=== PATIENT | male | born 1995 | race Caucasian/White ===

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

== ENCOUNTER 2017-01-16 12:30 | Emergency (ER) | payer OTHER ==
[2017-01-16 12:49] VITALS: RESP 16
[2017-01-16 12:58] LABS: % IMMATURE GRANULYOCYTES 0.5 % (0.0-1.1); ABSOLUTE IMMATURE GRANULOCYTES 0.07 10^3/uL (0.00-0.10); ADD DIFF? NO; ADD MORPH? NO; ADD SCAN? NO; ATYPICAL LYMPHOCYTE FLAG 0 (0-99); FRAGMENT RBC FLAG 0 (0-99); HEMATOCRIT 45.4 % (40.0-51.0); HEMOGLOBIN 15.2 g/dL (13.7-17.5); LEFT SHIFT FLG 0 (0-99); LIPEMIA HEMOLYSIS FLAG 80 (0-99); MEAN CELL HEMOGLOBIN 28.8 pg (27.9-34.1); MEAN CELL HEMOGLOBIN CONCENTR. 33.5 g/dL (32.4-36.7); MEAN PLATELET VOLUME 10.6 fL (8.7-11.7); PLATELET CLUMPS FLAG 30 (0-99); PLATELET COUNT 264 10^3/uL (150-400); RED BLOOD CELL COUNT 5.28 10^6/uL (4.40-6.38); RED CELL DISTRIBUTION WIDTH 12.7 % (11.5-15.2)
[2017-01-16 13:16] LABS: ALANINE AMINOTRANSFERASE 27 IU/L (21-72); ALBUMIN 4.9 g/dL (3.5-5.0); ALKALINE PHOSPHATASE 77 IU/L (38-126); ANION GAP 19 mEq/L (8-16); ASPARTATE AMINOTRANSFERASE 32 IU/L (17-59); BILIRUBIN,TOTAL 0.8 mg/dL (0.1-1.4); CALCIUM 9.7 mg/dL (8.5-10.4); CARBON DIOXIDE 24 mEq/l (22-31); CHLORIDE 102 mEq/L (97-110); GLOMERULAR FILTRATION RATE > 60; GLUCOSE 117 mg/dL (70-100); POTASSIUM 3.6 mEq/L (3.5-5.2); SODIUM 145 mEq/L (134-144); TOTAL PROTEIN 7.6 g/dL (6.3-8.2)
--- NOTE | 2017-01-16 14:21 | EDPHY ---
HPI/HX/ROS/PE/MDM Narrative: CHIEF COMPLAINT: "I've thrown up at least 15 times" HISTORY OF PRESENT ILLNESS: The patient is a 21 y/o male complaining of persistent vomiting since waking this morning. He says, "I get these spells where I get sick and throw up." He has been evaluated by GI and had an endoscopy over the summer in [place]. He was told it's "really bad acid reflux and really bad anxiety coupling on top of each other." He takes pantoprazole and Zantac for this. He woke up feeling nauseated and went to [facility] where he was given 8mg of Zofran then referred here. He says he first vomited his meal up, then developed bilious emesis, then saw "black stuff" appear in his emesis. He has been stuffing his finger down his throat to force himself to vomit and his abdominal pain is worse after vomiting. He's also had 5 episodes of diarrhea. He attributes his symptoms to being under more stress recently. He denies alcohol use or recent marijuana use. No fever, chills, chest pain, shortness of breath, palpitations, urinary complaints, headache, lightheadedness. No black or tarry stools. REVIEW OF SYSTEMS: Aside from elements discussed in the HPI, a comprehensive 10-point review of systems was reviewed and is negative. PAST MEDICAL HISTORY: Anxiety, acid reflux, frequent vomiting episodes, finger tendon repair SOCIAL HISTORY: Denies alcohol use. No cigarette use. Rare marijuana use. [employer] student. VITAL SIGNS: Reviewed by me GENERAL: Well-developed, well-nourished, resting comfortably actively retching in no respiratory distress. HEENT: Atraumatic. Eyes: No icterus, no injection. Mouth: moist mucous membranes. No erythema or lesions. Neck: supple with no adenopathy. LUNGS: Clear to auscultation bilaterally, no wheezes, rhonchi or rales. CARDIAC: Regular rate and rhythm, no rubs, murmurs or gallops. ABDOMEN: Soft, nontender, nondistended, bowel sounds normal. BACK: No CVA tenderness. EXTREMITIES: No trauma. No edema. Range of motion is normal throughout. NEURO: Alert and oriented, grossly nonfocal. SKIN: Warm and dry, no rash. PSYCHIATRIC: Normal mentation, no agitation. Portions of this note were transcribed by a caregivers non medical. I personally performed a history, physical exam, medical decision making, and confirmed accuracy of information the transcribed note. ED Course: This is a 21 y/o male with a history of anxiety and acid reflux and recurrent episodes of vomiting who presents with persistent vomiting onset this morning. He is actively retching in the room on assessment. His abdomen is benign. Plan for IV, labs, and symptom management. Labs including H pylori are normal. Patient improved following the Ativan for nausea and IV Prilosec. Patient appointment tomorrow with Gastroenterology. He was given a prescription of Zofran. He was advised to maintain a bland diet until he is seen tomorrow. He was also advised not to induce vomiting. MDM: Differential diagnosis of the patient's nausea and vomiting was considered including but not limited to gastroenteritis, gastritis, alcohol intoxication, withdrawal symptoms, intraabdominal processes including appendicitis, pancreatitis, bowel obstruction and medication side effect. - Data Points Laboratory Results: Laboratory Results 01/16/17 12:30 01/16/17 12:30 01/16/17 01/16/17 01/16/17 12:30 12:30 12:30 WBC 14.14 10^3/uL H 10^3/uL (3.80-9.50) RBC 5.28 10^6/uL 10^6/uL (4.40-6.38) Hgb 15.2 g/dL g/dL (13.7-17.5) Hct 45.4 % % (40.0-51.0) MCV 86.0 fL fL (81.5-99.8) MCH 28.8 pg pg (27.9-34.1) MCHC 33.5 g/dL g/dL (32.4-36.7) RDW 12.7 % % (11.5-15.2) Plt Count 264 10^3/uL 10^3/uL (150-400) MPV 10.6 fL fL (8.7-11.7) Neut % (Auto) 78.5 % H % (39.3-74.2) Lymph % (Auto) 13.2 % L % (15.0-45.0) [place] % (Auto) 6.2 % % (4.5-13.0) Eos % (Auto) 1.2 % % (0.6-7.6) Baso % (Auto) 0.4 % % (0.3-1.7) Nucleat RBC Rel Count 0.0 % % (0.0-0.2) Absolute Neuts (auto) 11.10 10^3/uL H 10^3/uL (1.70-6.50) Absolute Lymphs (auto) 1.87 10^3/uL 10^3/uL (1.00-3.00) Absolute Monos (auto) 0.87 10^3/uL H 10^3/uL (0.30-0.80) Absolute Eos (auto) 0.17 10^3/uL 10^3/uL (0.03-0.40) Absolute Basos (auto) 0.06 10^3/uL 10^3/uL (0.02-0.10) Absolute Nucleated RBC 0.00 10^3/uL 10^3/uL (0-0.01) Immature Gran % 0.5 % % (0.0-1.1) Immature Gran # 0.07 10^3/uL 10^3/uL (0.00-0.10) Sodium 145 mEq/L H mEq/L (134-144) Potassium 3.6 mEq/L mEq/L (3.5-5.2) Chloride 102 mEq/L mEq/L (97-110) Carbon Dioxide 24 mEq/l mEq/l (22-31) Anion Gap 19 mEq/L H mEq/L (8-16) BUN 14 mg/dL mg/dL (7-23) Creatinine 1.0 mg/dL mg/dL (0.7-1.3) Estimated GFR > 60 Glucose 117 mg/dL H mg/dL (70-100) Calcium 9.7 mg/dL mg/dL (8.5-10.4) Total Bilirubin 0.8 mg/dL mg/dL (0.1-1.4) AST 32 IU/L IU/L (17-59) ALT 27 IU/L IU/L (21-72) Alkaline Phosphatase 77 IU/L IU/L (38-126) Total Protein 7.6 g/dL g/dL (6.3-8.2) Albumin 4.9 g/dL g/dL (3.5-5.0) H. pylori IgG Antibody NEGATIVE (NEG) Medications Given: Discontinued Medications Fentanyl (Sublimaze) 50 mcg IVP EDNOW ONE Stop: 01/16/17 14:37 Last Admin: 01/16/17 14:43 Dose: 50 mcg Sodium Chloride (Ns) 1,000 mls @ 0 mls/hr IV ONCE ONE; Wide Open PRN Reason: Protocol Stop: 01/16/17 14:37 Last Admin: 01/16/17 14:42 Dose: 1,000 mls Lorazepam (Ativan Injection) 1 mg IVP EDNOW ONE Stop: 01/16/17 14:33 Last Admin: 01/16/17 14:42 Dose: 1 mg Pantoprazole Sodium (Protonix) 40 mg IVP EDNOW ONE Stop: 01/16/17 14:33 Last Admin: 01/16/17 14:42 Dose: 40 mg General Time Seen by Provider: 01/16/17 14:17 Initial Vital Signs: Initial Vital Signs Temperature (C) 37.5 C 01/16/17 12:47 Heart Rate 78 01/16/17 12:47 Respiratory Rate 16 01/16/17 12:47 Blood Pressure 122/76 H 01/16/17 12:47 O2 Sat (%) 97 01/16/17 12:47 O2 Delivery Mode Room Air Allergies/Adverse Reactions: No Known Allergies Allergy (Unverified 12/15/16 00:19) Home Medications: Medication Instructions Recorded Lexapro 12/12/16 Ondansetron Odt [Zofran Odt 4 mg 4 mg PO Q6 PRN #7 tab 12/12/16 (*)] Promethazine HCl [Phenergan 25mg 25 mg PO Q8 PRN #11 tab 12/12/16 (*)] Sucralfate [Carafate 1gm/10ml Oral 1 gm PO QID #240 ml 12/12/16 Liquid (*)] Zantac 12/12/16 Ondansetron HCl [Zofran] 4 mg PO Q4-6PRN PRN #10 tablet 12/15/16 Promethazine 25Mg Supp Prepk#4 25 mg [place] BID #1 bottle 12/15/16 [Phenergan 25Mg Supp Prepack#4] Ondansetron Odt [Zofran Odt 4 mg 4 mg PO Q4 #12 tab 01/16/17 (*)] Departure - Departure Disposition: Home, Routine, Self-Care Clinical Impression: Cyclical vomiting Qualifiers: Vomiting Intractability: non-intractable Nausea presence: with nausea Qualified Code(s): G43.A0 - Cyclical vomiting, not intractable GERD (gastroesophageal reflux disease) Qualifiers: Esophagitis presence: with esophagitis Qualified Code(s): K21.0 - Gastro- esophageal reflux disease with esophagitis Gastritis Qualifiers: Gastritis type: unspecified gastritis Chronicity: chronic Gastritis bleeding: presence of bleeding unspecified Qualified Code(s): K29.50 - Unspecified chronic gastritis without bleeding Condition: Good Instructions: Gastritis (ED), Diet for Stomach Ulcers and Gastritis (ED) Additional Instructions: Please keep her appointment tomorrow with Gastroenterology. For your vomiting, I suggested you start with a bland diet and advance as tolerated. This means start with clear liquids such as water, Gatorade, juice, flat non- caffeinated soda. If you tolerate clear liquids, then you may add bland foods such as bananas, rice, or toast. If you do not have any worsening of your symptoms, you may begin to resume a regular diet. Okay to use Phenergan suppositories or zofran as needed for ongoing nausea and vomiting. Please to not make yourself vomit or induce vomiting with your finger. Please try to control the heavy retching if possible. Inducing vomiting and heavy retching may result in bleeding of the esophagus. Referrals: Taras Bales MD [Primary Care Provider] - As per Instructions Stand Alone Forms: School Excuse Prescriptions: Ondansetron Odt [Zofran Odt 4 mg (*)] 4 mg PO Q4 #12 tab Report Scribed for: Yvonne Daniel Report Scribed by: Clarisa Acosta Date of Report: 01/16/17 Time of Report: 14:29
[2017-01-16] MEDS ORDERED: LORazepam 2 MG/ML INJ IVP ONE (14:32)
[2017-01-16] MEDS ORDERED: PANTOPRAZOLE SODIUM 40 MG VIAL IVP ONE (14:32)
[2017-01-16] MEDS ORDERED: NS 1,000 ML IV ONE (14:36)
[2017-01-16] MEDS ORDERED: fentaNYL 100 MCG/2 ML INJ IVP ONE (14:36)
[2017-01-16 15:50] VITALS: TEMP 97.7
[2017-01-16 15:55] VITALS: BP 118/72; PULSE 101; O2SAT 98
== END 2017-01-16 15:55 | disposition home or self-care (01) ==
LOC: EDUNIT#
DX: K21.0 Gastro-esophageal reflux disease with esophagitis (principal); K29.50 Unspecified chronic gastritis without bleeding; G43.A0 Cyclical vomiting, in migraine, not intractable; E86.9 Volume depletion, unspecified
CPT/HCPCS: 96374; J2060; J3010